=== PATIENT | female | born 1965 | race Caucasian/White ===

== ENCOUNTER 2017-11-11 20:31 | Emergency (ER) | payer OTHER, MEDICARE ==
[2017-11-11 21:33] VITALS: BP 133/83
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
== END 2017-11-11 23:15 ==
LOC: ERH 20:31
DX: Z04.1 Encounter for examination and observation following transport accident (principal); V79.50XA Passenger on bus injured in collision with unspecified motor vehicles in traffic accident, initial encounter; Y92.488 Other paved roadways as the place of occurrence of the external cause

== ENCOUNTER 2017-12-25 11:07 | Emergency (ER) | payer OTHER, MEDICARE ==
[~2017-12-25] VITALS: Ht 149.9 cm; Wt 61.2 kg
[2017-12-25 11:15] VITALS: BP 117/64
--- NOTE | 2017-12-25 11:47 | ED INFLUENZA/URI COMPLAINT ---
History of Present Illness General Chief Complaint: General Adult Stated Complaint: SIB WALK IN FOR FEVER Source: family, old records Exam Limitations: physical impairment Vital Signs & Intake/Output Vital Signs & Intake/Output Vital Signs Date Time Temp Pulse Resp B/P B/P Pulse O2 O2 Flow FiO2 Mean Ox Delivery Rate 12/25 1300 97.7 12/25 1115 98.3 96 18 117/64 94 Room Air Allergies Coded Allergies: No Known Allergies (11/11/17) Reconcile Medications Calcium Carbonate (Oyster Shell Calcium) 500 MG CALCIUM (1,250 MG) TABLET 1 TAB PO DAILY VITAMIN SUPPORT (Reported) Cholecalciferol (Vitamin D3) (Vitamin D3) 2,000 UNIT TABLET 1 TAB PO DAILY VITAMIN SUPPORT (Reported) Docusate Sodium (Colace) 100 MG CAPSULE 1 CAP PO BID CONSTIPATION (Reported) Polyethylene Glycol 3350 (Miralax) 17 GRAM/DOSE POWDER 17 GM PO DAILY CONSTIPATION (Reported) mix with water, juice, soda, coffee or tea Sertraline HCl (Zoloft) 100 MG TABLET 1 TAB PO DAILY MENTAL HEALTH (Reported) Triage Note: PT TO ER WITH ASSISTIVE PERSONNEL, PER STAFF FROM [facility] PT HAS HAD NON-PRODUCTIVE COUGH X 1 DAY, POOR PO INTAKE, AND FEVER. T-MAX 101.0 THIS MORNING, GIVEN TYLENOL AT 0920, TEMP IN TRIAGE 98.3. PT WITH HX OF MR, APHASIA, AUTISM. Triage Nurses Notes Reviewed? yes Onset: Abrupt Duration: day(s): (1), constant Timing: single episode today Severity: mild Severity Numbers: 1 No Modifying Factors: none Associated Symptoms: denies HPI: 52-year-old female history of MR presents to ER with correction media associate who states that she had a fever of 101.0 today associated with a nonproductive cough since today. Upon media associate states another member of the correction has bronchitis. There is been no change in the patient's mentation no rashes to her skin no nausea vomiting diarrhea no change in her diet. No rhinorrhea congestion. The patient has not been complaining of any complaints otherwise Past History Travel History Traveled to [place] past 21 day No Medical History Any Pertinent Medical History? see below for history Neurological: seizure, MR NONVERBAL autism Musculoskeletal: osteoporosis Psychiatric: depression PHARMACEUTICAL SERVICE REPRESENTATIVE/Reproductive: dysfunctional uterine bleeding Surgical History Surgical History: non-contributory Psychosocial History What is your primary language Khmer Tobacco Use: Cognitive Impairment Family History Hx Contributory? No Review of Systems Review of Systems Constitutional: Reports: see HPI. Comments Review of systems: Via correction media associate Constitutional, no chills no fever HEENT: no sore throat no congestioN Cardiovascular: No chest pain Skin: no rashes, no change in skin Respiratory: No dyspnea GI: No nausea no vomiting, no diarrhea : No dysuria No hematuria, no frequency Muscle skeletal: No joint pain, no back pain Neurologic: , no headache Heme/endocrine: No bruising Immunology: No lymphadenopathy Physical Exam Physical Exam General Appearance: well developed/nourished, no apparent distress, awake Ears, Nose, Throat: normal ENT inspection, moist mucous membrane Comments: Well-developed well-nourished patient in no apparent distress. Head/Face: Atraumatic, no maxillary/frontal sinus tenderness, no facial swelling Eyes: PERRL, EOMI, no conjunctival injection. No nystagmus Ear:External auditory canal and Tympanic membranes clear, no erythema, no FB. Nose: atraumatic.Normal inspection: Throat: Moist mucous membranes.Pharynx normal. No pharyngeal erythema/exudate seen. No stridor/drooling or assymetry. No swelling or edema. Neck: Supple, no lymphadenopathy, FROM Back: FROM Cardiovascular: Regular rate and rhythms no murmurs rubs or gallops, Respiratory: Chest nontender.There were no bony deformities, no asymmetry. No respiratory distress. Patient speaking in full complete sentences. Breath sounds clear to auscultation bilaterally: NO W/R/R Extremities: full range of motion Neuro: awake, alert, and oriented to person, place and time. There were no obvious focal neurologic abnormalities. Skin: Warm & dry;No appreciable rash on exposed skin Psych: Mood affect normal, normal memory normal judgment. Core Measures Sepsis Present: No Sepsis Focused Exam Completed? No Progress Differential Diagnosis: influenza, otitis, pneumonia, pharyngitis, sinusitis Plan of Care: Orders Procedure Date/time Status RAPID VIRAL INFLUENZA A 12/25 1116 Complete Microbiology 12/25 1118 NASOPHARYN: Influenza Virus A & B Rapid Smear - COMP Flu swab x-ray ordered patient is nontoxic appearing in no acute distress case discussed with Dr. Rosales agrees with plan 1300 repeat evaluation DOMINIQUE remains afebrile 97 7 no acute distress, discussed with her media associate plan of care I do not believe she requires any blood work at this time for further workup which she is in agreement with return portions were discussed at length advised to check her temperature every 4-6 hours at the correction Tylenol Motrin however if fevers persist to return to the ER immediately. They feel comfortable with plan cleared for discharge Diagnostic Imaging: Viewed by Me: Radiology Read. Discussed w/RAD: Radiology Read. Radiology Impression: PATIENT: DOMINIQUE HODGSON PRESENT AGE: 52 PATIENT ACCOUNT NO: [id number] : 63 LOCATION: [facility] ORDERING PHYSICIAN: Delio CASTELLANO SERVICE DATE: 12/25/17 EXAM TYPE: RAD - XRY- PORTABLE CHEST XRAY EXAMINATION: XR PORTABLE CHEST CLINICAL INFORMATION: Cough and fever. Rule out pneumonia. COMPARISON: None TECHNIQUE: Portable AP semiupright view of the chest was obtained on 2 images. FINDINGS: Evaluation is significantly limited due to patient's contracted body habitus and difficulties with patient positioning and cooperation. The patient's head projects over the upper and mid chest, obscuring assessment. Low lung volumes are seen with linear subsegmental atelectasis or scarring in the right mid and lower lung. The left lung appears largely clear though the left lung apex is obscured. There is prominence of the right perihilar soft tissues, most likely related to prominence of the right mediastinal contour brought out by patient positioning. A right perihilar/central consolidation or a central mass is felt to be likely. No effusion is seen. No definite pneumothorax is noted on these limited images. IMPRESSION: 1. Extremely limited study with findings primarily of right mid and lower lung subsegmental atelectasis or scarring. 2. Prominence of the right heart border/perihilar region is seen, most likely due to patient positioning. DICTATED BY: Kassy Mosquera MD DATE/TIME DICTATED:12/25/171234 PERSONAL FINANCE INSTRUCTOR:DANIEL DATE/TIME TRANSCRIBED:12/25/171234 CONFIDENTIAL, DO NOT COPY WITHOUT APPROPRIATE AUTHORIZATION. <Electronically signed in Other Vendor System> SIGNED BY: Kassy Mosquera MD 12/25/17 1248 Initial ED EKG: none Departure Departure Time of Disposition: 1301 Disposition: HOME OR SELF CARE Condition: Stable Clinical Impression Primary Impression: Bronchitis Referrals: Urciuoli MD,Rafael Masters (PCP/Family) Additional Instructions: Follow-up with her primary care physician this week. Check her temperature every 4-6 hours if greater than 100.4 give Tylenol or Motrin. If she has persistent fevers despite medication or U have any other concerns please return to the ER. Departure Forms: Customer Survey General Discharge Information
[2017-12-25] MEDS ORDERED: ZOLOFT100 M1 PO (12:23)
[2017-12-25] MEDS ORDERED: MIRALAX119 GM PO (12:24)
[2017-12-25] MEDS ORDERED: VITAMIN D32000 UNI1 PO (12:24)
[2017-12-25] MEDS ORDERED: COLACE100 M1 PO (12:25)
[2017-12-25] MEDS ORDERED: OYSTER SHELL C500 M2 PO (12:25)
--- NOTE | 2017-12-25 12:48 | RADIOLOGY REPORT ---
EXAMINATION: XR PORTABLE CHEST CLINICAL INFORMATION: Cough and fever. Rule out pneumonia. COMPARISON: None TECHNIQUE: Portable AP semiupright view of the chest was obtained on 2 images. FINDINGS: Evaluation is significantly limited due to patient's contracted body habitus and difficulties with patient positioning and cooperation. The patient's head projects over the upper and mid chest, obscuring assessment. Low lung volumes are seen with linear subsegmental atelectasis or scarring in the right mid and lower lung. The left lung appears largely clear though the left lung apex is obscured. There is prominence of the right perihilar soft tissues, most likely related to prominence of the right mediastinal contour brought out by patient positioning. A right perihilar/central consolidation or a central mass is felt to be likely. No effusion is seen. No definite pneumothorax is noted on these limited images. IMPRESSION: 1. Extremely limited study with findings primarily of right mid and lower lung subsegmental atelectasis or scarring. 2. Prominence of the right heart border/perihilar region is seen, most likely due to patient positioning.
[2017-12-26] MEDS ORDERED: PROVENTIL HFA6.7 GM INH (18:55)
[2017-12-26] MEDS ORDERED: LEVAQUIN500 M1 PO (18:55)
[2017-12-26] MEDS ORDERED: DELTASONE20 MG PO (18:55)
== END 2017-12-25 13:19 ==
LOC: ERH 11:07
DX: J40 Bronchitis, not specified as acute or chronic (principal)
CPT/HCPCS: 71045; 87804; 87804-59

== ENCOUNTER 2017-12-26 16:18 | Emergency (ER) | payer OTHER, MEDICARE ==
[~2017-12-26 16:18] MED LIST: COLACE100 M1 PO; MIRALAX119 GM PO; OYSTER SHELL C500 M2 PO; VITAMIN D32000 UNI1 PO; ZOLOFT100 M1 PO
--- NOTE | 2017-12-26 17:20 | ED GENERAL ADULT ---
History of Present Illness General Chief Complaint: Fever Stated Complaint: WHEEZING/FEVER? Source: old records, friend Exam Limitations: physical impairment Vital Signs & Intake/Output Vital Signs & Intake/Output Vital Signs Date Time Temp Pulse Resp B/P B/P Pulse O2 O2 Flow FiO2 Mean Ox Delivery Rate 12/26 1845 98.0 90 18 108/66 96 Room Air 12/26 1731 93 12/26 1621 98.4 109 18 130/92 92 Room Air Allergies Coded Allergies: No Known Allergies (11/11/17) Reconcile Medications Albuterol Sulfate (Proventil Hfa) 90 MCG HFA.AER.AD 2 PUF INH Q4 COUGH WITH SPACER Calcium Carbonate (Oyster Shell Calcium) 500 MG CALCIUM (1,250 MG) TABLET 1 TAB PO DAILY VITAMIN SUPPORT (Reported) Cholecalciferol (Vitamin D3) (Vitamin D3) 2,000 UNIT TABLET 1 TAB PO DAILY VITAMIN SUPPORT (Reported) Docusate Sodium (Colace) 100 MG CAPSULE 1 CAP PO BID CONSTIPATION (Reported) Levofloxacin (Levaquin) 500 MG TABLET 1 TAB PO DAILY pna Polyethylene Glycol 3350 (Miralax) 17 GRAM/DOSE POWDER 17 GM PO DAILY CONSTIPATION (Reported) mix with water, juice, soda, coffee or tea Prednisone (Deltasone) 20 MG TABLET 1 TAB PO BID BRONCHITIS Sertraline HCl (Zoloft) 100 MG TABLET 1 TAB PO DAILY MENTAL HEALTH (Reported) Triage Note: PT TO ED FROM [facility]. WAS SEEN IN ED YESTERDAY FOR COUGH, FEVER, HAD CXRAY DONE. TAKING TYLENOL AT HOME. STAFF REPORTS FEVER PERSISTS AND NOW THEY HAVE NOTED WHEEZING. TEMP 98.4 TYMPANIC AT TRIAGE. 02 SAT 92% ROOM AIR. Triage Nurses Notes Reviewed? yes Onset: Abrupt Duration: day(s):, intermittent Timing: recent history Severity: moderate, severe No Modifying Factors: none HPI: 52-year-old female comes into the emergency room accompanied by caregiver for cough fever chills. Symptoms been going on for the past couple days. Patient is nonverbal. She's had a decreased appetite which is below her baseline. She was seen here yesterday and diagnosed bronchitis. She was brought back for further evaluation due to worsening symptoms. (Preet Garcia) Past History Travel History Traveled to [place] past 21 day No Medical History Any Pertinent Medical History? see below for history Neurological: seizure, MR NONVERBAL autism Musculoskeletal: osteoporosis Psychiatric: depression MUSIC LIBRARIAN/Reproductive: dysfunctional uterine bleeding Surgical History Surgical History: non-contributory Psychosocial History What is your primary language Tajik Tobacco Use: Never used Family History Hx Contributory? No (Preet Garcia) Review of Systems Review of Systems Constitutional: Reports: see HPI. EENTM: Reports: no symptoms. Respiratory: Reports: see HPI. Cardiovascular: Reports: no symptoms. GI: Reports: no symptoms. Genitourinary: Reports: no symptoms. Musculoskeletal: Reports: no symptoms. Skin: Reports: no symptoms. Neurological/Psychological: Reports: no symptoms. Hematologic/Endocrine: Reports: no symptoms. Immunologic/Allergic: Reports: no symptoms. All Other Systems: Reviewed and Negative (Preet Garcia) Physical Exam Physical Exam General Appearance: well developed/nourished, alert, awake Head: atraumatic Eyes: Bilateral: normal appearance. Ears, Nose, Throat: normal ENT inspection, hearing grossly normal Neck: normal inspection Respiratory: normal breath sounds, no respiratory distress Cardiovascular: regular rate/rhythm Gastrointestinal: soft Back: normal inspection Extremities: normal inspection, no edema Neurologic/Psych: awake, alert, oriented x 3, normal gait Skin: intact, normal color Core Measures ACS in differential dx? No CVA/TIA Diagnosis: No Sepsis Present: No Sepsis Focused Exam Completed? No (Preet Garcia) Progress Differential Diagnoses I considered the following diagnoses in my evaluation of the patient: Pneumonia , bronchitis, sepsis, UTI, Plan of Care: Orders Procedure Date/time Status COMPREHENSIVE METABOLIC PANEL 12/26 1718 Complete CBC WITHOUT DIFFERENTIAL 12/26 1718 Complete Laboratory Tests 12/26/17 1740: Anion Gap 13, Estimated GFR > 60, BUN/Creatinine Ratio 42.0 H, Glucose 103 H, Calcium 9.3, Total Bilirubin 0.6, AST 21, ALT 25, Alkaline Phosphatase 117, Total Protein 7.1, Albumin 4.0, Globulin 3.1, Albumin/Globulin Ratio 1.3, CBC w Diff NO MAN DIFF REQ, RBC 4.34, MCV 94.7, MCH 31.3 H, MCHC 33.1, RDW 13.2, MPV 7.6, Gran % 67.8, Lymphocytes % 17.5 L, Monocytes % 10.7 H, Eosinophils % 3.9, Basophils % 0.1, Absolute Granulocytes 5.3, Absolute Lymphocytes 1.4, Absolute Monocytes 0.8 H, Absolute Eosinophils 0.3, Absolute Basophils 0 Initial ED EKG: none (Preet Garcia) Departure Departure Disposition: HOME OR SELF CARE Condition: Stable Clinical Impression Primary Impression: Bronchitis Referrals: Maria Dolores RASHID,Rafael Masters (PCP/Family) Additional Instructions: Take Levaquin and prednisone as prescribed. Use albuterol pump at home. Return if any concerns worsening symptoms. Follow-up with primary care doctor. Please go over all results of today's visit with your primary care doctor. Contact your primary care doctor to let them know you were here in the emergency room. There may be nonspecific findings which may not be related to your visit today here in the emergency room but may require further evaluation and chronic monitoring by your primary care doctor. If you had a laceration today the chance of foreign body always remains. You should follow-up with your primary care doctor for recheck in 3-5 days for a wound check. If you had an x-ray done there is a chance that a fracture could have been missed on initial read and you should follow-up with your primary care doctor for repeat x-rays if symptoms persist. If your blood pressure was elevated here in the emergency room please have rechecked by [facility] primary care doctor within the next 48. If you were prescribed a narcotic here in the emergency room or any type of controlled substances you're not allowed to drive while taking this medication or operate any type of heavy machinery. Narcotics can make you feel lightheaded dizziness nausea and can cause constipation. You may need to chart picker a stool softener. Thank you for choosing [facility] emergency room. Please return to the emergency room immediately if you have any other concerns worsening of symptoms. Departure Forms: Customer Survey General Discharge Information Prescriptions: Current Visit Scripts Levofloxacin (Levaquin) 1 TAB PO DAILY #7 TAB Prednisone (Deltasone) 1 TAB PO BID #10 TAB Albuterol Sulfate (Proventil Hfa) 2 PUF INH Q4 #1 INHAL WITH SPACER Comments 12/26/2017 7:00:29 PM Resting comfortably in room. In no apparent distress. No respiratory distress. Patient will be started on oral antibiotic cover for potential pneumonia. Also started on prednisone for bronchitis type symptoms. Return if any other concerns. Not cooperative with a repeat chest x-ray. Do not feel sedating the patient is appropriate since she had a chest x-ray performed yesterday. (Preet Garcia) PA/CENTRAL OFFICE FRAME WIRER Co-Sign Statement Statement: ED Attending supervision documentation- [] I saw and evaluated the patient. I have also reviewed all the pertinent lab results and diagnostic results. I agree with the findings and the plan of care as documented in the PA's/CENTRAL OFFICE FRAME WIRER's documentation. [X] I have reviewed the ED Record and agree with the PA's/CENTRAL OFFICE FRAME WIRER's documentation. [] Additions or exceptions (if any) to the PAs/CENTRAL OFFICE FRAME WIRER's note and plan are summarized below: [] (Amador BAKER,Jose Saha) Critical Care Note Critical Care Note Critical Care Time: non-applicable (Preet Garcia) ED Attending Observation Initial Observation Note: I have seen and personally examined DOMINIQUE HODGSON on 12/26/17 at 1827. I agree with the current emergency department documentation. The disposition (admission or discharge) is uncertain at this time, she needs a period of observation for the following reason(s): The ED Nurse caring for this patient has been personally informed as to what the patient is being observed for. (Preet Garcia)
[2017-12-26 18:00] LABS: ABSOLUTE BASOPHIL COUNT 0 /CUMM (0.0-0.2); ABSOLUTE EOSINOPHIL COUNT 0.3 /CUMM (0.0-0.7); ABSOLUTE GRANULOCYTE CT 5.3 /CUMM (1.4-6.5); ABSOLUTE LYMPH COUNT 1.4 /CUMM (1.2-3.4); ABSOLUTE MONOCYTE COUNT 0.8 /CUMM (0.10-0.60); BASOPHIL % 0.1 % (0.0-2.0); EOSINOPHIL % 3.9 % (0-5); GRANULOCYTE % 67.8 % (42.2-75.2); HEMATOCRIT 41.1 % (37-47); MEAN CORPUSCULAR HGB 31.3 PG (27.0-31.0); MEAN CORPUSCULAR HGB CONC 33.1 G/DL (33.0-37.0); MEAN CORPUSCULAR VOLUME 94.7 FL (81.0-99.0); MEAN PLATELET VOLUME 7.6 FL (7.4-10.4); PLATELET COUNT 276 /CUMM (130-400); RBC DISTRIBUTION WIDTH 13.2 % (11.5-14.5); RED BLOOD CELL CT 4.34 /CUMM (4.20-5.40); WHITE BLOOD CELL COUNT 7.8 /CUMM (4.8-10.8)
[2017-12-26 18:45] VITALS: BP 108/66
[2017-12-26] MEDS ORDERED: DELTASONE20 MG PO (18:55)
[2017-12-26] MEDS ORDERED: LEVAQUIN500 M1 PO (18:55)
[2017-12-26] MEDS ORDERED: PROVENTIL HFA6.7 GM INH (18:55)
== END 2017-12-26 19:06 ==
LOC: ERH 16:18
PROVIDERS: Physician Assistant Medical
DX: J40 Bronchitis, not specified as acute or chronic (principal)
CPT/HCPCS: 1263